=== PATIENT | male | born 1960 | race African-American/Black ===

== ENCOUNTER 2018-01-19 19:07 | Inpatient (IN) | payer OTHER ==
[~2018-01-19] VITALS: Ht 175.3 cm; Wt 66.5 kg
[2018-01-19 21:36] LABS: microscopic required? NO
[2018-01-19 21:41] LABS: UA SPECIFIC GRAVITY >=1.030 (1.005-1.035); urine erythrocyte NEGATIVE (NEGATIVE)
[2018-01-19 22:03] LABS: BASOPHIL % 0.5 % (0-2); PLATELET COUNT 181 x10^3mcL (130-400); RED CELL DISTRIBUTION WIDTH 13.8 % (11.5-14.5)
[2018-01-19 22:29] LABS: CALCIUM 9.2 mg/dL (8.5-10.1); CARBON DIOXIDE 33.7 mmol/L (21-32); CHLORIDE SERUM 99 mmol/L (98-107); CREATININE SERUM 0.8 mg/dL (0.7-1.3); GFR1 > 60 mL/min; GLUCOSE SERUM 87 mg/dL (74-106); SODIUM SERUM 137 mmol/L (136-145)
[2018-01-19 22:34] LABS: ALBUMIN 3.5 g/dL (3.4-5.0); ALKALINE PHOSPHATASE 58 U/L (46-116); ALT/SGPT 20 U/L (16-63); AST/SGOT 35 U/L (15-37); TOTAL PROTEIN, SERUM 7.3 g/dL (6.4-8.2)
[2018-01-19 22:36] LABS: C REACTIVE PROTEIN < 0.2 mg/dL (<=0.9)
[2018-01-19 22:53] LABS: ERYTHROCYTE SED RATE 23 mm/hr (0-20)
[2018-01-19 23:23] VITALS: BP 164/84
[2018-01-20 00:02] LABS: MAGNESIUM 1.8 mg/dL (1.8-2.4); PHOSPHOROUS 4.6 mg/dL (2.5-4.9)
[2018-01-20 00:04] LABS: CHOLESTEROL/HDL RATIO 2.1
[2018-01-20 00:24] LABS: T3 TOTAL 0.93 ng/mL
[2018-01-20 00:28] LABS: FREE T4 0.71 ng/dL (0.76-1.46); FREE THYROXINE INDEX 1.9 ug/dL (1.4-4.5); T4(THYROXINE) 5.8 ug/dL (4.7-13.3)
[2018-01-20 04:10] VITALS: BP 182/102
[2018-01-20 07:02] LABS: AMPHETAMINE QUAL UR NONE DETECTED (NEG <=1000)
[2018-01-20 07:33] LABS: BASOPHIL % 0.3 % (0-2); PLATELET COUNT 166 x10^3mcL (130-400); RED BLOOD CELLS 3.44 M/mm3 (4.52-5.90); RED CELL DISTRIBUTION WIDTH 13.6 % (11.5-14.5)
[2018-01-20 07:39] LABS: CALCIUM 8.9 mg/dL (8.5-10.1); CARBON DIOXIDE 31.8 mmol/L (21-32); CHLORIDE SERUM 101 mmol/L (98-107); CREATININE SERUM 0.8 mg/dL (0.7-1.3); GFR1 > 60 mL/min; GLUCOSE SERUM 82 mg/dL (74-106); MAGNESIUM 1.9 mg/dL (1.8-2.4); PHOSPHOROUS 4.3 mg/dL (2.5-4.9); POTASSIUM SERUM 3.8 mmol/L (3.5-5.1); SODIUM SERUM 138 mmol/L (136-145)
[2018-01-20 07:43] LABS: IRON 139 ug/dL (65-170); TOTAL IRON BINDING CAPACITY 238 ug/dL (250-450)
[2018-01-20 08:42] VITALS: BP 162/85
[2018-01-20 10:08] VITALS: Ht 175.3 cm; Wt 66.5 kg
[2018-01-20 13:31] VITALS: BP 146/74
[2018-01-20 17:12] VITALS: BP 120/77
[2018-01-20 21:09] VITALS: BP 101/57
[2018-01-21 06:41] VITALS: BP 132/85
[2018-01-21 06:59] LABS: BASOPHIL % 0.4 % (0-2); PLATELET COUNT 184 x10^3mcL (130-400)
[2018-01-21 07:12] LABS: CALCIUM 9.3 mg/dL (8.5-10.1); CARBON DIOXIDE 29.6 mmol/L (21-32); CHLORIDE SERUM 99 mmol/L (98-107); CREATININE SERUM 0.7 mg/dL (0.7-1.3); GFR1 > 60 mL/min; GLUCOSE SERUM 85 mg/dL (74-106); POTASSIUM SERUM 3.9 mmol/L (3.5-5.1); SODIUM SERUM 137 mmol/L (136-145)
[2018-01-21 08:28] VITALS: BP 138/78
[2018-01-21] MEDS ORDERED: NEU300 PO (08:48)
[2018-01-21] MEDS ORDERED: [UNRECOGNIZED DRUG - OTHER] TOP (08:48)
[2018-01-21] MEDS ORDERED: ADA30 PO (08:48)
[2018-01-21] MEDS ORDERED: BD LACTINEX1.4 MG PO (09:03)
[2018-01-21] MEDS ORDERED: CLINDAMYCIN HC300 MG PO (09:03)
[2018-01-21] MEDS ORDERED: DIF100 PO (09:03)
[2018-01-21] MEDS ORDERED: ATI1 PO (09:05)
[2018-01-21 10:08] VITALS: BP 138/78
== END 2018-01-21 12:34 | disposition home or self-care (01) | DRG 52 ==
LOC: ED 19:07 → DU 22:12
PROVIDERS: Emergency Medicine; Family Medicine
DX: G92 Toxic encephalopathy (principal); F10.188 Alcohol abuse with other alcohol-induced disorder; F17.210 Nicotine dependence, cigarettes, uncomplicated; J44.9 Chronic obstructive pulmonary disease, unspecified; B35.3 Tinea pedis; E86.0 Dehydration; Y90.9 Presence of alcohol in blood, level not specified; R82.4 Acetonuria; I89.0 Lymphedema, not elsewhere classified; F12.988 Cannabis use, unspecified with other cannabis-induced disorder
CPT/HCPCS: 83880; 84439; 94150; G0480; J1644; J1885; J2060; J2270; J2543; J3490; J7030; J7620; Q0092